=== PATIENT | female | born 1965 | race Caucasian/White ===

== ENCOUNTER 2023-07-11 05:47 | Day surgery (SDC) | payer OTHER ==
[~2023-07-11] VITALS: Ht 144.8 cm; Wt 52.8 kg
[2023-07-11] VITALS (15 sets, daily range): BP systolic 116–159; BP diastolic 65–97
[~2023-07-11 05:47] MED LIST: Aspir 8181 MG PO; HYDCHL12.5 PO; LOSA25
--- NOTE | 2023-07-11 07:12 | NUR ---
Patient up to Ambulate independently. Gait steady. Surgical site prepped with 2% Chlorhexidine cloth wipe. History, Chart, Medications and Allergies reviewed before start of procedure. Lungs clear T/O to Auscultation. Patient confirms NPO status and agrees with scheduled surgery. Pre-Op teaching done. Pt verbalizes understanding.
[2023-07-11 13:19] LABS: BASOPHILS ABSOLUTE AUTO 0.04 K/mm3 (0.00-0.23); BASOPHILS PERCENT AUTO 0 % (0-2); EOSINOPHILS ABSOLUTE AUTO 0.01 K/mm3 (0.00-0.68); EOSINOPHILS PERCENT AUTO 0 % (0-6); Hematocrit 41.6 % (33.0-51.0); IMMATURE GRAN ABSOLUTE AUTO 0.08 K/mm3 (0.00-0.10); IMMATURE GRAN PERCENT AUTO 1 % (0-1); LYMPHOCYTES ABSOLUTE AUTO 0.75 K/mm3 (0.84-5.20); LYMPHOCYTES PERCENT AUTO 5 % (21-46); MONOCYTES ABSOLUTE AUTO 0.19 K/mm3 (0.16-1.47); MONOCYTES PERCENT AUTO 1 % (4-13); Mean Corpuscular HGB 30.9 pg (26.0-34.0); Mean Corpuscular HGB Conc 33.7 g/dL (31.5-36.5); Mean Corpuscular Volume 92 fL (80-100); Mean Platelet Volume 9.5 fL (9.1-12.4); NEUTROPHILS PERCENT AUTO 93 % (41-73); Platelet Count 313 K/mm3 (150-400); RDW Coefficient Variation 13.2 % (11.7-14.2); RDW Standard Deviation 44.8 fL (35.1-46.3); Red Blood Cell Count 4.53 M/mm3 (3.80-5.20); White Blood Cell Count 15.57 K/mm3 (4.00-11.30)
--- NOTE | 2023-07-11 14:35 | NUR ---
abbasi removed and packing removed at this time. small amount sanguinous drainage on packing. pt ambulating to restroom well, awaiting first void. tolerating po well pain controlled per emar. no nausea at this time
--- NOTE | 2023-07-11 18:09 | NUR ---
S/P [facility] PT AMBULATING WELL IN HALLWAYS. PAIN WELL CONTROLLED PER EMAR. PRESCRIPTIONS PICKED UP BY FAMILY PRIOR TO DISCHARGE. PT HAD SLIGHT NAUSEA AFTER EATING. FEELS MUCH BETTER. ABLE TO VOID. NO DISCHARGE ON BREONNA PAD. ALL INSTRUCTIONS GONE OVER WITH PATIENT. ESCORTED OUT WITH WHEELCHAIR.
== END 2023-07-11 18:08 | disposition home or self-care (01) ==
LOC: ORSCMMR 05:47 → ORD 08:00 → SURS 10:17 → ORSCMMR 18:08
PROVIDERS: Obstetrics & Gynecology
PROC: 0UT2FZZ Resection of Bilateral Ovaries, Via Natural or Artificial Opening With Percutaneous Endoscopic Assistance (ICD-10-PCS; principal; 2023-07-11 08:00)
PROC: 0UT9FZZ Resection of Uterus, Via Natural or Artificial Opening With Percutaneous Endoscopic Assistance (ICD-10-PCS; principal; 2023-07-11 08:00)
PROC: 0JQC0ZZ Repair Pelvic Region Subcutaneous Tissue and Fascia, Open Approach (ICD-10-PCS; principal; 2023-07-11 08:00)
PROC: 0UT7FZZ Resection of Bilateral Fallopian Tubes, Via Natural or Artificial Opening With Percutaneous Endoscopic Assistance (ICD-10-PCS; principal; 2023-07-11 08:00)
DX: N81.4 Uterovaginal prolapse, unspecified (principal); R93.89 Abnormal findings on diagnostic imaging of other specified body structures; N81.10 Cystocele, unspecified; I10 Essential (primary) hypertension; F17.210 Nicotine dependence, cigarettes, uncomplicated; Z79.899 Other long term (current) drug therapy; Z79.82 Long term (current) use of aspirin
CPT/HCPCS: 36415; 85025; 88307; A9270; J0171; J0690; J1885; J3010; J7120